=== PATIENT | male | born 1950 | race African-American/Black ===

== ENCOUNTER 2018-12-03 14:34 | Inpatient (IN) | payer SELFPAY ==
[~2018-12-03 14:34] MED LIST: Rocuronium Bromide 10 MG/ML (10ML VIAL) ONE
--- NOTE | 2018-12-03 15:20 | CT ---
CT BRAIN WITHOUT CONTRAST: HISTORY:Syncope COMPARISON:None FINDINGS: There are foci of decreased attenuation in the periventricular white matter, consistent with chronic small vessel ischemic disease. No evidence of acute infarct, hemorrhage, midline shift or abnormal extra-axial fluid collections is seen. The ventricular size is appropriate and the basilar cisterns are patent. The bony calvarium is intact. There are postop changes in the upper cervical spine The visualized paranasal sinuses and mastoid air cells are well aerated. IMPRESSION: No CT evidence of acute intracranial process.
--- NOTE | 2018-12-03 15:25 | RAD ---
RADIOGRAPH CHEST 1 VIEW: Date: 12/03/18 Time: 1500 HOURS HISTORY: 68-year-old male status post cardiopulmonary resuscitation. Unresponsive. COMPARISON: None. FINDINGS: There are bilateral small to moderate size pleural effusions, with partial silhouetting of the right hemidiaphragm and complete silhouetting of left hemidiaphragm, with adjacent air space densities in t he bilateral lower lung zones, left greater than right. The bilateral upper lung zones are clear. No pulmonary edema or pneumothorax. IMPRESSION: 1. Bilateral pleural effusions. 2. Air space densities at the bilateral lung bases, left greater than right. JN [] POS: TPC
[2018-12-03 15:42] LABS: Actual Bicarbonate (HCO3a) 34.3 mEq/L (22-28); Analyzer IN Cardio ER; Calcium, Ionized 1.17 mmol/L (1.12-1.30); Carboxyhemoglobin (COHb) 0.2 gm% (0.0-3.0); Hemoglobin (Hb) 10.6 g/dL (14.0-18.0); O2 Tension (PaO2) 133.4 mmHg (> 80.0); Potassium - ABG Lab 3.74 mmol/L (3.70-5.30)
[2018-12-03 15:51] LABS: Hemoglobin 10.9 g/dL (14.0-18.0); Mean Corpuscular HGB CONC 31.5 g/dL (32.0-36.0); Mean Corpuscular Hemoglobin 27.5 pg (27.0-31.0); Mean Corpuscular Volume 87.4 fL (78.0-98.0); Platelet Count 19 thou/uL (130-400); RBC Distribution Width 19.2 % (11.5-14.5); Red Blood Cell (RBC) Count 3.97 mill/uL (4.70-6.10); White Blood Cell (WBC) Count 1.3 thou/uL (4.8-10.8)
[2018-12-03 16:06] LABS: #Lymphocytes 0.6 thou/uL (1.20-3.40); #Monocytes 0.1 thou/uL (0.11-0.59); #Neutrophils 0.5 thou/uL (1.40-6.50); %Lymphocytes 49.7 % (21.0-51.0); %Neutrophils 39.8 % (42.0-75.0); ALT (SGPT) 20 U/L (8-55); AST (SGOT) 30 U/L (5-34); Albumin 3.7 g/dL (3.4-4.8); Alkaline Phosphatase 85 U/L (40-150); Anion Gap 18 mmol/L (10-20); Anisocytosis SLIGHT = 6-15 cells (100X) (0-5/hpf); BUN (Urea Nitrogen) 19 mg/dL (8.4-25.7); Band 1 % (5-11); Bilirubin, Total 0.4 mg/dL (0.2-1.2); Calc. Creatinine Clearance 0 mL/min (70-130); Calcium 9.3 mg/dL (7.8-10.44); Carbon Dioxide 28 mmol/L (23-31); Chloride 96 mmol/L (98-107); Estimated GFR-MDRD 67; Globulin 4.3 g/dL (2.4-3.5); Glucose 195 mg/dL (80-115); Lipase 18 U/L (8-78); Lymphocytes 50 % (21-51); MDiff Complete? YES; Monocytes 4 % (0-10); Neutrophil 44 % (42-75); Platelet Morphology Comment Appears Decreased; Polychromasia SLIGHT = 2-3 cells (100X) (0-2/hpf); Potassium 4.1 mmol/L (3.5-5.1); Reactive Lymphocytes 1 % (0-10); Reflex for Review?? YES; Sodium 138 mmol/L (136-145)
[2018-12-03] MEDS ORDERED: Piperacillin/Tazobactam 4.5 GM VIAL ONE (16:16)
[2018-12-03 16:24] LABS: ALV-art Gradient -48.385 (0-20); CO2 Tension 91.7 mmHg (35.0-45.0); Puncture Site L.R.; pH, Arterial 7.19 (7.35-7.45)
[2018-12-03 19:56] LABS: Troponin I 0.073 ng/mL (< 0.028)
[2018-12-03] MEDS ORDERED: Ondansetron PF 4 MG/2 ML Vial IVP PRN ×2 (19:59→22:23)
[2018-12-03] MEDS ORDERED: Ondansetron ODT 4 MG TAB SL PRN (19:59)
[2018-12-03 20:33] LABS: Lactic Acid 2.2 mmol/L (0.5-2.2)
[2018-12-03 21:55] LABS: Actual Bicarbonate (HCO3a) 36.5 mEq/L (22-28); Calcium, Ionized 1.16 mmol/L (1.12-1.30); Carboxyhemoglobin (COHb) 0.3 gm% (0.0-3.0); Hemoglobin (Hb) 10.4 g/dL (14.0-18.0); O2 Tension (PaO2) 119.3 mmHg (> 80.0); Potassium - ABG Lab 4.61 mmol/L (3.70-5.30)
[2018-12-03] MEDS ORDERED: Piperacillin/Tazobactam 3.375 GM in Sodium Chloride 0.9% 100 ML IVPB SCH (22:00)
[2018-12-03 22:11] LABS: pH, Arterial 7.19 (7.35-7.45)
[2018-12-03 22:12] LABS: ALV-art Gradient 9.125 (0-20); CO2 Tension 96.9 mmHg (35.0-45.0); Puncture Site RBRACH
[2018-12-03] MEDS ORDERED: Acetaminophen 325 MG TAB PO PRN (22:23)
[2018-12-03] MEDS ORDERED: Calcium Carbonate 500 MG ChewTAB PO PRN (22:23)
[2018-12-03] MEDS ORDERED: Ondansetron ODT 4 MG TAB PO PRN (22:23)
[2018-12-03 22:24] LABS: INR-International Normal Ratio 1.1; PTT 24.2 SEC (22.9-36.1); Prothrombin Time 14.2 SEC (12.0-14.7)
[2018-12-03] MEDS ORDERED: SYSTANE 3.5 GM TUBE EA EYE PRN (22:34)
[2018-12-03 22:37] LABS: Anion Gap 18 mmol/L (10-20); BUN (Urea Nitrogen) 21 mg/dL (8.4-25.7); Calc. Creatinine Clearance 71 mL/min (70-130); Calcium 9.2 mg/dL (7.8-10.44); Carbon Dioxide 24 mmol/L (23-31); Chloride 101 mmol/L (98-107); Estimated GFR-MDRD 82; Glucose 124 mg/dL (80-115); Magnesium 1.1 mg/dL (1.6-2.6); Potassium 4.7 mmol/L (3.5-5.1); Sodium 138 mmol/L (136-145)
[2018-12-03 22:43] LABS: Troponin I 0.087 ng/mL (< 0.028)
[2018-12-03] MEDS ORDERED: Cefepime 2 GM in Sodium Chloride 0.9% 100 ML IVPB SCH (22:45)
[2018-12-03] MEDS ORDERED: Ventilator Sedation Protocol 1 EACH FS SCH (22:45)
[2018-12-03] MEDS ORDERED: Dextrose 5 % And 0.9 % NaCl 1,000 ML IV SCH (22:45)
--- NOTE | 2018-12-03 22:52 | RAD ---
Chest one view HISTORY: Central line placement. Dyspnea. Intubated. COMPARISON: Earlier exam on the same date. FINDINGS: Cardiac silhouette is magnified by projection and partially obscured by bilateral pleural f luid and bibasilar atelectasis. Mediastinum is midline. Nasogastric tube descends to the stomach. Tip of endotracheal catheter overlies the thoracic inlet. Tip of a left subclavian central venous cat heter overlies the superior vena cava. No evidence of pneumothorax. IMPRESSION: Endotracheal catheter, central venous catheter, and nasogastric tube are in good radiogra phic position. Bilateral pleural fluid and other findings are otherwise stable.
[2018-12-03] MEDS ORDERED: Lorazepam 2 MG/ML VIAL SLOW IVP PRN (22:53)
[2018-12-03] MEDS ORDERED: fentaNYL Citrate/PF 2,000 MCG in Sodium Chloride 0.9% 60 ML IV SCH (22:53)
[2018-12-03] MEDS ORDERED: Propofol 1,000 MG/100 ML VIAL IV PRN (22:53)
[2018-12-03] MEDS ORDERED: Morphine 2 MG/ML SYRINGE SLOW IVP PRN (22:53)
[2018-12-03] MEDS ORDERED: Propofol BOLUS 1,000 MG/100 ML VIAL IV PRN (22:53)
[2018-12-03] MEDS ORDERED: Fentanyl BOLUS 250 ML IVPB PRN (22:53)
[2018-12-03] MEDS ORDERED: DISCONTINUE PREVIOUS NARCOTIC PAIN MEDICATIONS AND BENZODIAZEPINES FS SCH (22:53)
[2018-12-03] MEDS ORDERED: Propofol 1,000 MG/100 ML VIAL IV ONE (22:54)
[2018-12-03] MEDS ORDERED: Magnesium Sulfate 4 GM in Sodium Chloride 0.9% 250 ML 250 ML IVPB SCH (23:00)
[2018-12-03] MEDS ORDERED: Magnesium Sulfate 2 GM in Sodium Chloride 0.9% 100 ML IVPB SCH (23:00)
[2018-12-03 23:25] LABS: Actual Bicarbonate (HCO3a) 27.3 mEq/L (22-28); Base Excess (BEa) 6.3 mEq/L (-2.0 to +3.0); CO2 Tension 27.4 mmHg (35.0-45.0); Calcium, Ionized 1.07 mmol/L (1.12-1.30); Carboxyhemoglobin (COHb) 0.7 gm% (0.0-3.0); O2 Tension (PaO2) 178.7 mmHg (> 80.0); Potassium - ABG Lab 4.33 mmol/L (3.70-5.30)
[2018-12-03] MEDS: Vancomycin HCl 1 GM in Premix Bag 1 BAG IVPB SCH (23:27)
[2018-12-03] MEDS: Dextrose 5 % And 0.9 % NaCl 1,000 ML IV SCH (23:27)
[2018-12-03 23:33] LABS: Puncture Site RRA; pH, Arterial 7.62 (7.35-7.45)
[2018-12-03] MEDS ORDERED: Nitroglycerin 0.4 MG TAB (25 Tab Bottle) PO PRN (23:48)
[2018-12-03] MEDS ORDERED: Insulin Regular 300 UNITS/3 ML VIAL SC PRN (23:54)
[2018-12-03] MEDS ORDERED: Dextrose 50% Abboject 50 ML SYRINGE SLOW IVP PRN (23:54)
[2018-12-03] MEDS ORDERED: Dextrose 5% in Water 1,000 ML IV PRN (23:54)
--- NOTE | 2018-12-04 00:29 | HP ---
PRIMARY CARE PHYSICIAN: [facility]. PRIMARY ONCOLOGIST: Dr. Zhang at [facility]. CHIEF COMPLAINT: Altered mentation with syncopal episode. HISTORY OF PRESENT ILLNESS: The patient is a 68-year-old male with peritoneal cancer with metastasis, currently followed at [facility], presented to the hospital by EMS after a syncopal episode. The event was witnessed by patient's daughter , who is a nurse. He became lightheaded when he returned to the hotel room with his family. He landed on the bed without hitting his head. His pulses were thready. He had very shallow bleeding. He received CPR for approximately 5 minutes until the EMS arrived. There was no chest pain, palpitations, or focal neurologic deficit reported prior to the above event. At this time, the patient is on BiPAP and not much information is available from the patient due to current mentation. In the emergency room, his initial vital signs showed temperature of 97.8, pulse rate of 122, blood pressure of 105/76, O2 saturation of 93% on 2 L nasal cannula. ABGs were done in the emergency room that showed pH of 7.19 with pCO2 of 91.7, PO2 of 133.4 with bicarbonate of 34.3. He was placed on noninvasive positive- pressure ventilation at 12/5 at 4:00 p.m. EKG showed sinus tachycardia with nonspecific ST-T wave changes in the lateral leads. He received Levaquin and Zosyn along with 1 L IV fluids in the emergency room. His chest x-ray showed small to moderate bilateral pleural AV effusion along with airspace densities in bilateral lung base. CT brain without contrast was negative. Blood cultures were not done in the emergency room due to poor IV access. Daughter reported that lately patient gets short of breath on mild exertion. He is unable to lie down flat. He has been sleeping in the recliner. PAST MEDICAL HISTORY: 1. Obtained from the daughter at the bedside. Peritoneal cancer (mesothelioma with metastasis). 2. Diabetes mellitus type 2. 3. Hypertension. 4. Chronic pain syndrome. PAST SURGICAL HISTORY: 1. Recent left thoracentesis for malignant pleural effusion. 2. History of paracentesis. 3. Multiple abdominal biopsies. 4. Colonoscopy. 5. EGD. 6. Neck surgery. ALLERGIES: NO KNOWN DRUG ALLERGIES. CURRENT HOME MEDICATIONS: Family to provide accurate list of medications. According to the ER list, the patient is on: 1. Oxycodone. 2. Olanzapine. 3. Potassium chloride. 4. Metformin. 5. Zofran. 6. Metoprolol tartrate. 7. Amlodipine. 8. Reglan. 9. Lasix 40 mg twice a day. 10. Folic acid. 11. Xanax. 12. Megace. SOCIAL HISTORY: The patient is a former smoker, lives at home with his family. He is full code. This was confirmed with the daughter, who is the DPOA. He is independent of activities of daily living. However, due to weakness, he started using rolling walker. FAMILY HISTORY: Negative for heart disease or malignancy per family. REVIEW OF SYSTEMS: Cannot be obtained from the patient due to current cognitive status. PHYSICAL EXAMINATION: VITAL SIGNS: As discussed above. Due to abnormal repeat ABGs, he just got intubated. GENERAL: 68-year-old male in no apparent distress on sedation protocol. HEENT: Head, atraumatic and normocephalic. Sclerae anicteric. Endotracheal tube noted. NECK: Supple. No JVD. No neck stiffness. LUNGS: Showed bibasilar rales with diminished air entry at bilateral bases. No accessory muscle use. No wheezing. HEART: S1, S2 present. Regular. No heaves or pulsation. ABDOMEN: Soft. Bowel sounds present. No guarding or rigidity. EXTREMITIES: No edema or calf tenderness. NEUROLOGY AND PSYCHIATRY: Could not be done due to current cognitive status. SKIN: Warm and dry. LYMPH NODES: No palpable lymph nodes in the neck. LABORATORY FINDINGS: Laboratory findings as discussed above. WBC 1.3 with neutrophil of 39.8%, hemoglobin 10.9, hematocrit 34.7, platelet of 19. D-dimer 8.42. ABGs as discussed above. Lactic acid 4.5. Troponin in the indeterminate range at 0.074. Magnesium 1.1. Chest x-ray, EKG and CT brain by my review as discussed above. IMPRESSION: 1. Acute hypoxic and hypercapnic respiratory failure, secondary to healthcare-associated pneumonia. 2. s/p CPR prior to ER arrival. 3. Neutropenia with anemia and thrombocytopenia, probably secondary to chemotherapy. 4. Lactic acidosis probably secondary to suspected sepsis. 5. Toxic metabolic encephalopathy secondary to #1. 6. Elevated troponin secondary to demand ischemia/type 2 myocardial infarction. 7. Peritoneal cancer (mesothelioma) with metastasis. 8. Hypomagnesemia. 9. Diabetes mellitus type 2. 10. Chronic kidney disease, stage 2. 11. Hypertension. PLAN: The patient had a repeat ABG 6 hours after BiPAP that showed pH of 7.19 with pCO2 of 96.9, PO2 of 119.3 with bicarbonate 36.5. He currently got emergently intubated. The case was discussed with sas bi developer, Dr. Last, over the phone. We will start him on vancomycin, cefepime, and Levaquin for healthcare-associated pneumonia. IV fluids. DVT prophylaxis with SCDs. A central line has been placed due to poor IV access. GI prophylaxis. Ventilation sedation protocol. We will repeat chest x-ray, ABG, and labs in a.m. We will check BMP. Due to recent shortness of breath on mild exertion, we will also get an echocardiogram. There is a concern for pulmonary embolism as well. However, he is not a candidate for anticoagulation due to thrombocytopenia. We will check bilateral lower extremity Doppler to rule out DVT. Insulin sliding scale. Platelet transfusion if repeat platelet is below 15,000. Plan of care was discussed with the daughter and her in detail. They stated understanding. Job ID: [id number] [id number]
[2018-12-04 05:37] LABS: Platelet Count 12 thou/uL (130-400); White Blood Cell (WBC) Count 0.8 thou/uL (4.8-10.8)
[2018-12-04 05:38] LABS: Hemoglobin 7.8 g/dL (14.0-18.0); Mean Corpuscular HGB CONC 32.1 g/dL (32.0-36.0); Mean Corpuscular Hemoglobin 27.6 pg (27.0-31.0); Mean Platelet Volume 17.2 fL (7.4-10.4); RBC Distribution Width 18.4 % (11.5-14.5); Red Blood Cell (RBC) Count 2.83 mill/uL (4.70-6.10)
[2018-12-04 05:47] LABS: Elliptocytes SLIGHT = 2-5 cells (100X) (0-1/hpf); Eosinophils 4 % (0-10); Hypochromia SLIGHT = 6-15 cells (100X) (0-5/hpf); Lymphocytes 76 % (21-51); MDiff Complete? YES; Monocytes 4 % (0-10); Neutrophil 16 % (42-75); Platelet Morphology Comment Appears Decreased; Target Cells SLIGHT = 2-5 cells (100X) (0-1/hpf)
[2018-12-04 06:01] LABS: ALT (SGPT) 19 U/L (8-55); AST (SGOT) 32 U/L (5-34); Albumin 2.8 g/dL (3.4-4.8); Alkaline Phosphatase 59 U/L (40-150); Anion Gap 15 mmol/L (10-20); BUN (Urea Nitrogen) 21 mg/dL (8.4-25.7); Bilirubin, Total 0.4 mg/dL (0.2-1.2); Calc. Creatinine Clearance 69 mL/min (70-130); Calcium 8.4 mg/dL (7.8-10.44); Carbon Dioxide 28 mmol/L (23-31); Chloride 100 mmol/L (98-107); Estimated GFR-MDRD 79; Globulin 3.1 g/dL (2.4-3.5); Glucose 86 mg/dL (80-115); Phosphorus 1.6 mg/dL (2.3-4.7); Potassium 3.6 mmol/L (3.5-5.1); Protein, Total 5.9 g/dL (5.8-8.1); Sodium 139 mmol/L (136-145)
[2018-12-04] MEDS: Cefepime 2 GM in Sodium Chloride 0.9% 100 ML IVPB SCH ×3 (06:22→21:39)
[2018-12-04] MEDS: Dextrose 5 % And 0.9 % NaCl 1,000 ML IV SCH ×3 (06:23→09:58)
[2018-12-04 07:07] VITALS: BP 109/59
[2018-12-04 07:15] LABS: Actual Bicarbonate (HCO3a) 27.7 mEq/L (22-28); Base Excess (BEa) 6.1 mEq/L (-2.0 to +3.0); CO2 Tension 28.5 mmHg (35.0-45.0); Calcium, Ionized 1.07 mmol/L (1.12-1.30); Hemoglobin (Hb) 8.1 g/dL (14.0-18.0); O2 Tension (PaO2) 127.6 mmHg (> 80.0); Potassium - ABG Lab 3.61 mmol/L (3.70-5.30)
[2018-12-04 07:20] LABS: pH, Arterial 7.61 (7.35-7.45)
[2018-12-04 07:21] LABS: ALV-art Gradient 86.325 (0-20); Puncture Site RBA
--- NOTE | 2018-12-04 08:13 | RAD ---
CHEST 1 VIEW: Date: 12/04/18 INDICATION: CCU examination, on ventilation. COMPARISON: Prior exam dated 12/03/18. FINDINGS: There is cardiomegaly, bilateral pleural effusions, and bibasilar atelectasis. Pulmonary vascular con gestion persists. Tubes and lines are unchanged. No pneumothorax is demonstrated. IMPRESSION: 1. Stable findings suggesting CHF. There is cardiomegaly, pulmonary vascular congestion, bilateral p leural effusions, and bibasilar opacities suspicious for atelectasis. There is suspected emphysematou s change involving the upper lobes. 2. Tubes and lines are unchanged. POS: BH
[2018-12-04] MEDS ORDERED: CCU Electrolyte Replacement 1 EACH FS SCH (09:00)
--- NOTE | 2018-12-04 09:53 | CON ---
DATE OF CONSULTATION: HISTORY OF PRESENT ILLNESS: A 68-year-old gentleman, who is intubated on the vent. History is obtained after spoken to the hospitalist. He apparently from the [place] area, apparently had a syncopal episode at home and called 911. Daughter was at the bedside, witnessed the events, did not fall down, did not hit his head. He has a diagnosis of mesothelioma with peritoneal metastasis, on the chemotherapy with [facility]. Apparently, he was given CPR for a brief period of time. It appears the daughter is a nurse. He then was brought to the hospital. There blood gas showed marked respiratory acidosis, placed on noninvasive ventilation and was transferred to the ICU. At about 9 or 10 o'clock, he became less responsive and lethargic, he was intubated. He is presently sedated on a Diprivan drip. PAST MEDICAL HISTORY: Diabetes, hypertension, mesothelioma with atrial metastasis. PAST SURGICAL HISTORY: Multiple paracenteses, thoracentesis, abdominal biopsy, colonoscopy, endoscopy, orthopaedic neck surgery. SOCIAL HISTORY: We are in the process of trying to contact the daughter, but apparently smokes at one time. He lives by himself. No alcohol abuse. MEDICATIONS: Home medicines include; 1. Glucophage 1000 twice a day. 2. Potassium. 3. Zyprexa 2.5. 4. Lopressor 25 b.i.d. 5. Reglan. 6. Norvasc 2.5. 7. Megace 20. 8. Folic acid. 9. Xanax. 10. Hydrocodone. 11. Lasix 40 b.i.d. 12. Oxycodone. He is now on vancomycin, Levaquin, and Maxipime was initiated. Diprivan has stopped. PHYSICAL EXAMINATION: GENERAL: He opens his eyes. VITAL SIGNS: Pulse 104, blood pressure 109/59, respiratory rate 18, pulse 80. CHEST: Decreased breath sounds bilaterally. CARDIAC: Normal S1 and S2. No gallop. ABDOMEN: Distended, hard, some ascites. LABORATORY DATA: White count is 0.8, hemoglobin and hematocrit are 7 and 24, platelet count is only 12,000. His PO2 is 127, pCO2 this morning. His renal function is normal. BNP is 1227 elevated, cortisol level is 14. X-ray shows bilateral pleural effusion. His blood gases prior to intubation showed pCO2 of 96, pH of 7.19, and PO2 of 119, and BiPAP suggesting marked respiratory acidosis probably hypoventilation. IMPRESSION: 1. Respiratory failure. 2. Bilateral pleural effusion. 3. Congestive heart failure versus metastatic disease. 4. Abdominal carcinomatosis. 5. Diabetes. 6. Chronic pain. 7. Cachexia. 8. Pancytopenia. I agree with broad-spectrum antibiotics. Once we unable to assess neurological status, talk to the family, get additional information. They want to consider transfer him back to [facility]. I will try and wean if possible. This is a 45-minute critical time. Job ID: [id number]
[2018-12-04] MEDS ORDERED: Magnesium 2 GM/50 ML 2 GM in Premix Bag 1 BAG IVPB PRN (10:12)
[2018-12-04] MEDS ORDERED: Potassium Phosphate 12 MMOL in Sodium Chloride 0.9% 250 ML 250 ML IV PRN (10:12)
[2018-12-04] MEDS ORDERED: Potassium Chloride 20 MEQ TAB PO PRN (10:12)
[2018-12-04] MEDS ORDERED: PHOS-NAK 1 PKT PACK PO PRN (10:12)
[2018-12-04] MEDS ORDERED: Potassium Phosphate 9 MMOL in Sodium Chloride 0.9% 100 ML IVPB PRN (10:12)
[2018-12-04] MEDS ORDERED: Potassium Chloride 40 MEQ in Sodium Chloride 0.9% 250 ML 250 ML IVPB PRN (10:12)
[2018-12-04] MEDS ORDERED: Potassium Phosphate 15 MMOL in Sodium Chloride 0.9% 250 ML 250 ML IV PRN (10:12)
[2018-12-04] MEDS ORDERED: Magnesium Oxide 400 MG TAB PO PRN ×2 (10:12)
[2018-12-04] MEDS ORDERED: Potassium Chloride 40 MEQ in Premix Bag 1 BAG IVPB PRN (10:12)
--- NOTE | 2018-12-04 10:50 | CON ---
DATE OF CONSULTATION: REASON FOR CONSULTATION: Pancytopenia and peritoneal mesothelioma. HISTORY OF PRESENT ILLNESS: A 68-year-old male with peritoneal mesothelioma, currently being treated at [facility] by Dr. Zhang with carboplatin and pemetrexed, presenting to the hospital after syncopal episode. The patient is currently intubated and history is provided by the medical record. The patient was lightheaded at his hotel room and passed out landing on the bed without hitting his head. His daughter witnessed the event, who is a nurse, and the patient received CPR for 5 minutes before EMS arrived. The patient was placed on BiPAP and eventually emergently intubated. Currently, the patient denies any pain as he is alert enough to shake and nod his head. The patient last received chemotherapy on November 19, 2018 and did not receive any Neulasta or Neupogen. He had a CT chest, abdomen, and pelvis on November 17, 2018 that did show stable disease. According to the medical record, the patient has had prior hospital admissions for shortness of breath and has had markedly elevated BNP over 5000 in the past. REVIEW OF SYSTEMS: Unable to be obtained due to the patient's condition. PAST MEDICAL HISTORY: Peritoneal mesothelioma, diabetes, and hypertension. PAST SURGICAL HISTORY: Paracentesis, abdominal biopsies, colonoscopy, EGD, and neck surgery. ALLERGIES: NO KNOWN DRUG ALLERGIES. CURRENT MEDICATIONS: Reviewed. SOCIAL HISTORY: Former smoker. FAMILY HISTORY: Mesothelioma in a cousin as per [facility] records. PHYSICAL EXAMINATION: VITAL SIGNS: Pulse 104, blood pressure 109/59, saturating 100% on ventilator, temperature 98.6. GENERAL APPEARANCE: The patient is lying in bed, intubated, sedated, but alert and arousable. HEENT: Endotracheal tube noted. Otherwise, atraumatic and normocephalic. NECK: Supple without lymphadenopathy. LUNGS: Clear to auscultation anteriorly. CARDIAC: S1 and S2. Regular rhythm and rate. ABDOMEN: Soft, nondistended. There is no guarding. EXTREMITIES: No edema with SCDs in place. NEUROLOGIC: Unable to be done due to the patient's status. PSYCHIATRIC: Unable to be done due to the patient's status. SKIN: Warm and dry. LABORATORY DATA: White blood cell 0.8, hemoglobin 7.8, platelets 12. Absolute neutrophil count yesterday was 585, currently 128. Sodium 139, potassium 3.6, BUN 29, creatinine 1.13, phosphorus 1.6, magnesium 1.1. BNP 1227. Troponin 0.087. Albumin 2.8. IMAGING DATA: Chest x-ray shows bilateral pleural effusions and airspace densities at the bilateral lung bases, left greater than right. ASSESSMENT AND PLAN: A 68-year-old male with peritoneal mesothelioma on carboplatin and pemetrexed, last received on November 19, 2018, presenting with syncopal episode, currently intubated with hypoxic respiratory failure and being treated for a HCAP with vancomycin, cefepime, and Levaquin. The patient has passed his timing of his simran; however, his blood count continued to trend down secondary to his chemotherapy, and currently his ANC is 128, platelets 12, hemoglobin 7.8. We will recommend starting Neupogen 480 mcg subcu daily and continue until his ANC is at least 1.0. His platelets have trended down from 19 to 12 and recommend 1 unit of platelet transfusion. Hemoglobin is 7.8 and would recommend 1 unit PRBCs transfused if his hemoglobin drops to 7 or below. Continue antibiotics at this time, and the patient is currently planned for a trial of extubation today. We will follow along his hospital course with you. Job ID: [id number]
--- NOTE | 2018-12-04 11:22 | ULT ---
BILATERAL LOWER EXTREMITY VENOUS DOPPLER ULTRASOUND: Date: 12/04/18 HISTORY: Immobilization, bilateral lower extremity edema. TECHNIQUE: Stephenson scale ultrasound with color flow and spectral Doppler imaging of the deep venous systems of the lower extremities was performed bilaterally. FINDINGS: There is good flow, compression, and augmentation noted in the common femoral, femoral, deep femoral, popliteal, posterior tibial, and greater saphenous veins on either side. IMPRESSION: No evidence of deep venous thrombosis in either lower extremity. POS: JANENE
[2018-12-04] MEDS: Famotidine/PF 20 mg/2ml Vial SLOW IVP SCH ×2 (11:29→19:27)
[2018-12-04] MEDS: methylPREDNISolone Sod Succ 40 MG VIAL IVP SCH ×2 (11:29→19:27)
[2018-12-04] MEDS ORDERED: Diltiazem 125 MG in Sodium Chloride 0.9% 100 ML IVPB SCH ×2 (11:30→15:45)
[2018-12-04] MEDS: PHOS-NAK 1 PKT PACK PO PRN ×2 (11:39→17:29)
[2018-12-04] MEDS: Vancomycin HCl 1 GM in Premix Bag 1 BAG IVPB SCH ×2 (11:44→23:49)
--- NOTE | 2018-12-04 11:47 | CON ---
DATE OF CONSULTATION: 12/04/2018 INDICATION FOR CONSULTATION: A 68-year-old gentleman, who became unresponsive. CPR was initiated. We were asked to see the patient. He still remains on the ventilator, but is arousable. HISTORY OF PRESENT ILLNESS: This unfortunate gentleman 68 years old has a history of peritoneal carcinoma with metastasis to the lungs. He has been seen by [facility], apparently whether or not he had a syncopal episode yesterday whether he had sudden cardiac is unclear. He became lightheaded and then apparently fell off the bed, hit his head and then the family noticed that his pulses are very weak. Apparently, one of the family members is in the medical field, probably a nurse and CPR was initiated and then EMS has arrived. The patient had no cardiac complaints prior to the event except that he felt somewhat lightheaded. At this time, he remains on a ventilator in the intensive care unit and as noted, is arousable. He has in the past apparently complained that he was somewhat short of breath. He does have significant pancytopenia. His platelet count is 12,000. His WBC is 0.8. Also noted, his EKG shows a sinus rhythm, sinus tachycardia, but no acute EKG changes except some nonspecific T-wave inversions in the lateral leads and also some inferiorly, but no ST-segment elevations. These are some T-wave inversions, which are nonspecific. There are no family members available. We are unable to contact him by telephone thus far. PAST MEDICAL HISTORY: From the review of the records, he does have a history of hypertension and diabetes. He has chronic pain syndrome. He has peritoneal carcinoma with metastasis to the lungs and had a thoracentesis for a malignant pleural effusion. He has had multiple abdominal biopsies. He has had paracentesis. PAST SURGICAL HISTORY: He has had neck surgery. ALLERGIES: NONE. MEDICATIONS: Prior to admission included: 1. Olanzapine. 2. Oxycodone. 3. Potassium. 4. Metformin. 5. Zofran. 6. Metoprolol. 7. Amlodipine. 8. Reglan. 9. Lasix. 10. Folic acid. 11. Xanax. 12. Megace. SOCIAL HISTORY: Apparently, the patient smoked in the past. He lives with his family. FAMILY HISTORY: Noncontributory at this time. No family members available to explain any other history that might be associated with cardiac standpoint. REVIEW OF SYSTEMS: Not obtainable. PHYSICAL EXAMINATION: GENERAL: Reveals an elderly gentleman, who is arousable, heart rate is 120, blood pressure is 114/69, O2 saturation 100%, and respiratory rate 15 at this time. HEENT: Shows head to be normocephalic and atraumatic. Carotid pulses are present. I cannot hear any significant bruits at this time. CHEST: Clear anteriorly. Decreased breath sounds in the bases. CARDIOVASCULAR: Reveals a regular rate and rhythm. I did not hear any significant murmurs, heaves, thrills, bruits, or rubs. ABDOMEN: Soft. Somewhat firm actually, but I did not palpate any specific masses. EXTREMITIES: Show no clubbing or cyanosis. No edema. Decreased pulses are present. NEUROLOGIC: Difficult to determine as the patient is on the ventilator and somewhat sedated, but is arousable. SKIN: Warm and dry. DIAGNOSTIC DATA: EKG shows a sinus rhythm as noted above with some T-wave inversions, which is nonspecific. LABORATORY DATA: Shows a troponin I of 0.074, increased up to 0.087, still nonspecific, but could indicate a type 2 [id number] elevation myocardial infarction. His WBC is 0.8, hemoglobin 7.8, platelet count 12,000. Potassium 3.6, BUN 21, creatinine 1.13, blood sugar is 86. Chest x-ray shows bilateral pleural effusions. Echocardiogram has been performed, but is not yet available to be read. IMPRESSION: 1. A 68-year-old gentleman with metastatic cancer, who is a full code for the family members according to the records, who has now had either a sudden cardiac or single episode with hypotension, possibility he may be septic, but this will be evaluated by the primary care team, but his blood pressure appears to be stable, would be unlikely unclear as to why he had this event. At this time, he appears to be relatively stable as far as the cardiac status is concerned and I will await the results of the echocardiogram to make further recommendations. 2. History of diabetes. This will be dealt with by the primary care service. 3. Hypertension. He is under good control at this time. 4. Metastatic malignancies, which will also be dealt with by the Oncology Service. 5. Pancytopenia. I believe he will be transfused platelets, and then further evaluation will be based on the primary care's services evaluations and the family members when they are available. 6. Bilateral pleural effusions, in the past have been noted these are malignant effusions. Overall, prognosis in this gentleman obviously is poor. Cardiac status at this time appears to be relatively stable. Again, I will need to evaluate the echocardiogram. Cardiac enzymes are still indeterminate. Job ID: [id number]
[2018-12-04] MEDS: Insulin Regular 300 UNITS/3 ML VIAL SC PRN ×2 (12:49→18:22)
[2018-12-04 14:26] LABS: Hemoglobin 8.7 g/dL (14.0-18.0); Mean Corpuscular HGB CONC 31.1 g/dL (32.0-36.0); Mean Corpuscular Hemoglobin 27.4 pg (27.0-31.0); Mean Corpuscular Volume 87.9 fL (78.0-98.0); Mean Platelet Volume 10.1 fL (7.4-10.4); Platelet Count 67 thou/uL (130-400); RBC Distribution Width 18.8 % (11.5-14.5); Red Blood Cell (RBC) Count 3.19 mill/uL (4.70-6.10); White Blood Cell (WBC) Count 0.8 thou/uL (4.8-10.8)
[2018-12-04] MEDS ORDERED: Dextrose 5 % And 0.9 % NaCl 1,000 ML IV SCH (14:30)
[2018-12-04 14:43] LABS: Anisocytosis SLIGHT = 6-15 cells (100X) (0-5/hpf); Band 2 % (5-11); Eosinophils 1 % (0-10); Lymphocytes 33 % (21-51); MDiff Complete? YES; Monocytes 7 % (0-10); Neutrophil 54 % (42-75); Platelet Morphology Comment Appears Decreased; Polychromasia SLIGHT = 2-3 cells (100X) (0-2/hpf)
[2018-12-04 15:13] VITALS: BMI 22.7
--- NOTE | 2018-12-04 15:16 | PDOC.HOSPP ---
- Subjective Subjective: Says he is feeling ok. Denies SOB or discomfort. - Objective Vital Signs & Weight: Vital Signs (12 hours) Temp Pulse Resp BP Pulse Ox 12/04/18 13:40 118 H 20 100 12/04/18 12:53 98.8 F 20 100 12/04/18 12:00 100 12/04/18 09:55 100.0 F H 120 H 24 H 100 12/04/18 08:00 98.1 F 10 L 12/04/18 06:57 104 H 109/59 L 12/04/18 06:00 20 12/04/18 04:00 20 Weight Admit Weight 166 lb 14.239 oz Weight 167 lb 8.821 oz Most Recent Monitor Data Heart Rate from ECG 116 NIBP 117/68 NIBP BP-Mean 84 Respiration from ECG 17 SpO2 100 I&O: 12/03/18 12/04/18 12/05/18 06:59 06:59 06:59 Intake Total 1269 273.7 Output Total 410 172 Balance 859 101.7 Result Diagrams: 12/04/18 14:10 12/04/18 04:55 Additional Labs: Accuchecks 12/04/18 12/04/18 12:36 09:39 POC Glucose 187 H 131 H ROS - Review of Systems All systems: All other ROS were reviewed and found negative. - Medication Medications: Active Medications Generic Name Dose Route Start Last Admin Trade Name Freq PRN Reason Stop Dose Admin Acetaminophen 650 mg 12/03/18 22:23 12/04/18 09:48 Tylenol PO 650 mg Q4H PRN Administration Headache/Fever/Mild Pain (1-3) Albuterol/Ipratropium 3 ml 12/04/18 01:00 12/04/18 13:40 Duoneb NEB 3 ml [id number] JACKIE Administration Albuterol/Ipratropium 3 ml 12/04/18 13:00 12/04/18 14:23 Duoneb NEB Not Given [id number] JACKIE Famotidine 20 mg 12/04/18 09:00 12/04/18 11:29 Pepcid SLOW IVP 20 mg Q12HR JACKIE Administration Cefepime HCl 2 gm/ Sodium 100 mls @ 200 mls/hr 12/04/18 06:00 12/04/18 13:57 Chloride IVPB 100 mls Q8HR JACKIE Administration Vancomycin HCl 1 gm/ Device 200 mls @ 200 mls/hr 12/03/18 23:59 12/04/18 11: 44 IVPB 200 mls 1200,2359 JACKIE Administration Diltiazem HCl 125 mg/ Sodium 125 mls @ 5 mls/hr 12/04/18 11:30 12/04/18 11:44 Chloride IVPB 125 mls INF JACKIE Administration 5 MG/HR Dextrose/Sodium Chloride 1,000 mls @ 75 mls/hr 12/04/18 14:30 12/04/18 14:30 D5 0.9% Ns IV Not Given .[id number] JACKIE Insulin Human Regular 0 units 12/03/18 23:54 12/04/18 12:49 Humulin R SC 2 unit .MILD SLIDING SCALE PRN Administration Mild Correctional Scale Lorazepam 2 mg 12/03/18 22:53 12/04/18 01:14 Ativan SLOW IVP 01/02/19 22:53 2 mg Q1H PRN Administration Breakthrough agitation Magnesium Oxide 400 mg 12/04/18 10:12 12/04/18 13:01 Magnesium Oxide PO 400 mg BIDPRN PRN Administration FOR SERUM MAG 1.4 - 2.0 Methylprednisolone Sodium Succinate 40 mg 12/04/18 09:00 12/04/18 11:29 Solu-Medrol IVP 40 mg BID JACKIE Administration Miscellaneous Medication 1 pkt 12/04/18 10:12 12/04/18 11:39 Phos-Nak PO 1 pkt TIDPRN PRN Administration FOR PHOS LEVEL 1.0 - 1.8 Propofol 1,000 mg 12/03/18 22:53 12/04/18 08:43 Diprivan IV 01/02/19 22:53 1,000 mg INF PRN Administration TO ACHIEVE GOAL RASS Protocol Sodium Chloride 10 ml 12/03/18 21:00 12/04/18 08:44 Flush - Normal Saline IVF 10 ml Q12HR JACKIE Administration - Exam NAD, awake alert (A little drowsy.) Heart: RRR, no murmur, no gallops, no rubs, normal peripheral pulses Respiratory: CTAB, no wheezes, no rales, no ronchi, normal chest expansion, no tachypnea, normal percussion Gastrointestinal: soft, non-tender, non-distended, normal bowel sounds, no palpable masses, no hepatomegaly, no splenomegaly, no bruit Skin: normal turgor, no lesions, no rashes Neurological: CN's grossly intact, no focal deficits Psychiatric: normal affect, oriented to person, oriented to place Hosp A/P (1) Neutropenic fever Code(s): D70.9 - NEUTROPENIA, UNSPECIFIED; R50.81 - FEVER PRESENTING WITH CONDITIONS CLASSIFIED ELSEWHERE Status: Acute (2) Mesothelioma of abdomen Code(s): C45.7 - MESOTHELIOMA OF OTHER SITES Status: Acute (3) Acute diastolic (congestive) heart failure Code(s): I50.31 - ACUTE DIASTOLIC (CONGESTIVE) HEART FAILURE Status: Acute (4) SVT (supraventricular tachycardia) Code(s): I47.1 - SUPRAVENTRICULAR TACHYCARDIA Status: Acute (5) Syncope and collapse Code(s): R55 - SYNCOPE AND COLLAPSE Status: Acute (6) Acute respiratory failure with hypoxia Code(s): J96.01 - ACUTE RESPIRATORY FAILURE WITH HYPOXIA Status: Resolved - Plan Had an episode of collapse with thready pulse. Ultimately required intubation. Extubated now and doing better. Has pancytopenia and may be septic. Continue broad spectrum abx. Echo with normal EF and Diastolic dysfunction. Cardiology following Developed SVT. Has Cardizem gtt. UOP had dropped off a bit, but appears to be coming back. Will decrease IVF to 75 cc/hr.
[2018-12-04] MEDS: Sodium Chloride 0.9% 1,000 ML IV SCH (18:46)
[2018-12-04] MEDS: Metoprolol Tartrate 25 MG TAB PO SCH (19:27)
[2018-12-04] MEDS ORDERED: Prevnar 13-Val Conj/PF 0.5 ML SYRINGE IM ONE (21:00)
[2018-12-05] MEDS: Cefepime 2 GM in Sodium Chloride 0.9% 100 ML IVPB SCH ×3 (04:37→21:51)
[2018-12-05 04:59] LABS: Band 4 % (5-11); Hemoglobin 8.5 g/dL (14.0-18.0); Lymphocytes 12 % (21-51); MDiff Complete? YES; Mean Corpuscular HGB CONC 30.1 g/dL (32.0-36.0); Mean Corpuscular Hemoglobin 27.3 pg (27.0-31.0); Mean Corpuscular Volume 90.7 fL (78.0-98.0); Mean Platelet Volume 10.2 fL (7.4-10.4); Monocytes 10 % (0-10); Neutrophil 74 % (42-75); Platelet Count 61 thou/uL (130-400); Platelet Morphology Comment Appears Decreased; RBC Distribution Width 18.5 % (11.5-14.5); Red Blood Cell (RBC) Count 3.12 mill/uL (4.70-6.10); White Blood Cell (WBC) Count 1.6 thou/uL (4.8-10.8)
[2018-12-05 05:10] LABS: ALT (SGPT) 23 U/L (8-55); AST (SGOT) 25 U/L (5-34); Albumin 3.2 g/dL (3.4-4.8); Alkaline Phosphatase 63 U/L (40-150); Anion Gap 12 mmol/L (10-20); BUN (Urea Nitrogen) 21 mg/dL (8.4-25.7); Bilirubin, Total 0.2 mg/dL (0.2-1.2); Calc. Creatinine Clearance 66 mL/min (70-130); Calcium 8.9 mg/dL (7.8-10.44); Carbon Dioxide 29 mmol/L (23-31); Chloride 101 mmol/L (98-107); Estimated GFR-MDRD 75; Globulin 3.8 g/dL (2.4-3.5); Glucose 138 mg/dL (80-115); Magnesium 1.7 mg/dL (1.6-2.6); Potassium 4.9 mmol/L (3.5-5.1); Sodium 137 mmol/L (136-145)
[2018-12-05 05:17] LABS: Phosphorus 5.1 mg/dL (2.3-4.7)
[2018-12-05] MEDS: metFORMIN 500 MG TAB PO SCH ×2 (07:51→17:25)
[2018-12-05] MEDS: Famotidine/PF 20 mg/2ml Vial SLOW IVP SCH ×2 (08:02→20:29)
[2018-12-05] MEDS: methylPREDNISolone Sod Succ 40 MG VIAL IVP SCH (08:03)
[2018-12-05] MEDS: Metoprolol Tartrate 25 MG TAB PO SCH ×2 (08:03→20:29)
--- NOTE | 2018-12-05 09:07 | PRG ---
DATE OF SERVICE: 12/05/2018 SUBJECTIVE: This morning, awake, alert, and responsive. He was extubated yesterday. He is in no distress. OBJECTIVE: VITAL SIGNS: Saturations are 98% on room air, respirations 23, temperature 97, and blood pressure 127/71. He is in atrial fibrillation on Cardizem. CHEST: Decreased breath sounds. No wheezing. CARDIAC: Normal S1 and S2. No gallops. ABDOMEN: No masses. LABORATORY DATA: His renal function is normal. His white count is 1.6, H and H 26, and platelet count is low at 61. IMPRESSION: 1. Status post chemo, pancytopenia improving. 2. Congestive heart failure. 3. Supraventricular tachycardia. 4. Severe deconditioning. 5. History of mesothelioma with abdominal and pulmonary disease. His x-ray still shows small pleural effusion, which is probably chronic. He also has ascites. PLAN: Empiric antibiotics, supportive care, and PT. He can be probably transferred out of the ICU once he is off his Cardizem. Pulmonary will follow while in the ICU. Job ID: [id number]
[2018-12-05] MEDS: Sodium Chloride 0.9% 1,000 ML IV SCH ×2 (09:35→21:59)
--- NOTE | 2018-12-05 10:39 | RAD ---
CHEST 1 VIEW: Date: 12/05/18 INDICATION: CCU exam. COMPARISON: Prior exam dated 12/04/18. FINDINGS: There is stable cardiomegaly, pulmonary vascular congestion, and central edema pattern. There are sma ll bilateral pleural effusions. No pneumothorax is evident. Left subclavian central venous catheter i s unchanged. Patient has been extubated with removal of the gastric catheter. IMPRESSION: 1. Interval extubation and removal of gastric catheter. 2. Persistent findings of CHF and volume overload. POS: BH
[2018-12-05 11:26] LABS: Vancomycin, Trough 22.8 ug/mL
--- NOTE | 2018-12-05 12:02 | PDOC.HOSPP ---
- Subjective Subjective: Feels ok. Denies complaints. Breathing comfortably. - Objective Vital Signs & Weight: Vital Signs (12 hours) Temp Pulse Resp Pulse Ox 12/05/18 08:14 99 12/05/18 08:12 96 23 H 99 12/05/18 08:00 97.4 F L 12/05/18 07:11 100 12/05/18 04:00 97.5 F L Weight Admit Weight 166 lb 14.239 oz Weight 175 lb 7.807 oz Most Recent Monitor Data Heart Rate from ECG 86 NIBP 109/71 NIBP BP-Mean 83 Respiration from ECG 24 SpO2 94 I&O: 12/04/18 12/05/18 12/06/18 06:59 06:59 06:59 Intake Total 1269 3984.0 340 Output Total 410 216 Balance 859 3768.0 340 Result Diagrams: 12/05/18 04:40 12/05/18 03:30 Additional Labs: Accuchecks 12/04/18 12/04/18 18:22 12:36 POC Glucose 249 H 187 H ROS - Review of Systems All systems: All other ROS were reviewed and found negative. - Medication Medications: Active Medications Generic Name Dose Route Start Last Admin Trade Name Freq PRN Reason Stop Dose Admin Acetaminophen 650 mg 12/03/18 22:23 12/04/18 09:48 Tylenol PO 650 mg Q4H PRN Administration Headache/Fever/Mild Pain (1-3) Albuterol/Ipratropium 3 ml 12/04/18 01:00 12/05/18 08:12 Duoneb NEB 3 ml [id number] JACKIE Administration Albuterol/Ipratropium 3 ml 12/04/18 13:00 12/05/18 08:15 Duoneb NEB Not Given [id number] JACKIE Famotidine 20 mg 12/04/18 09:00 12/05/18 08:02 Pepcid SLOW IVP 20 mg Q12HR JACKIE Administration Cefepime HCl 2 gm/ Sodium 100 mls @ 200 mls/hr 12/04/18 06:00 12/05/18 04:37 Chloride IVPB 100 mls Q8HR JACKIE Administration Levofloxacin 750 mg/ Device 150 mls @ 100 mls/hr 12/04/18 17:00 12/04/18 17: 02 IVPB 150 mls 1700 JACKIE Administration Sodium Chloride 1,000 mls @ 75 mls/hr 12/04/18 18:45 12/05/18 09:35 Normal Saline 0.9% IV 1,000 mls .[id number] JACKIE Administration Insulin Human Regular 0 units 12/03/18 23:54 12/04/18 18:22 Humulin R SC 3 unit .MILD SLIDING SCALE PRN Administration Mild Correctional Scale Lorazepam 2 mg 12/03/18 22:53 12/04/18 01:14 Ativan SLOW IVP 01/02/19 22:53 2 mg Q1H PRN Administration Breakthrough agitation Magnesium Oxide 400 mg 12/04/18 10:12 12/04/18 13:01 Magnesium Oxide PO 400 mg BIDPRN PRN Administration FOR SERUM MAG 1.4 - 2.0 Metformin HCl 1,000 mg 12/05/18 08:00 12/05/18 07:51 Glucophage PO 1,000 mg BID-WM JACKIE Administration Metoprolol Tartrate 25 mg 12/04/18 21:00 12/05/18 08:03 Lopressor PO 25 mg BID JACKIE Administration Miscellaneous Medication 1 pkt 12/04/18 10:12 12/04/18 17:29 Phos-Nak PO 1 pkt TIDPRN PRN Administration FOR PHOS LEVEL 1.0 - 1.8 Propofol 1,000 mg 12/03/18 22:53 12/04/18 08:43 Diprivan IV 01/02/19 22:53 1,000 mg INF PRN Administration TO ACHIEVE GOAL RASS Protocol Sodium Chloride 10 ml 12/03/18 21:00 12/05/18 08:03 Flush - Normal Saline IVF 10 ml Q12HR JACKIE Administration Tbo-Filgrastim 480 mcg 12/05/18 09:00 12/05/18 10:19 Granix SC 480 mcg DAILY JACKIE Administration - Exam NAD, awake alert Neck: supple, symmetric, no JVD, no Thyromegaly, no lymphadenopathy, no carotid bruit Heart: RRR (Tachycardia), no murmur Respiratory: CTAB, no wheezes, no rales, no ronchi, normal chest expansion, no tachypnea Gastrointestinal: soft, non-tender, non-distended, normal bowel sounds, no palpable masses, no hepatomegaly, no splenomegaly, no bruit Extremities: no cyanosis, no clubbing, no edema Neurological: no focal deficits Musculoskeletal: normal tone Psychiatric: normal affect, normal behavior Hosp A/P (1) Neutropenic fever Code(s): D70.9 - NEUTROPENIA, UNSPECIFIED; R50.81 - FEVER PRESENTING WITH CONDITIONS CLASSIFIED ELSEWHERE Status: Acute (2) Mesothelioma of abdomen Code(s): C45.7 - MESOTHELIOMA OF OTHER SITES Status: Acute (3) Acute diastolic (congestive) heart failure Code(s): I50.31 - ACUTE DIASTOLIC (CONGESTIVE) HEART FAILURE Status: Acute (4) SVT (supraventricular tachycardia) Code(s): I47.1 - SUPRAVENTRICULAR TACHYCARDIA Status: Acute (5) Syncope and collapse Code(s): R55 - SYNCOPE AND COLLAPSE Status: Acute (6) Acute respiratory failure with hypoxia Code(s): J96.01 - ACUTE RESPIRATORY FAILURE WITH HYPOXIA Status: Resolved - Plan Still not entirely clear why he collapsed. Could be medication related, SVT related or sepsis from neutropenia. Empiric IV abx. Levaquin, Cefepime. Steroids. Restarted his BB and continues on Cardizem gtt. Episodes of SVT have been slower with the BB. Cardiology following. No longer neutropenic. Had neupogen yest. PT once his SVT is adequately controlled. DVT prophylaxis with SCD's. PUD prophylaxis with Pepcid.
[2018-12-05] MEDS: Vancomycin HCl 750 MG in Sodium Chloride 0.9% 250 ML 250 ML IVPB SCH (12:26)
[2018-12-05] MEDS: Insulin Regular 300 UNITS/3 ML VIAL SC PRN (13:04)
[2018-12-06] MEDS: Vancomycin HCl 750 MG in Sodium Chloride 0.9% 250 ML 250 ML IVPB SCH (00:08)
[2018-12-06 05:05] LABS: Band 8 % (5-11); Hemoglobin 7.6 g/dL (14.0-18.0); Hypochromia SLIGHT = 6-15 cells (100X) (0-5/hpf); Lymphocytes 27 % (21-51); MDiff Complete? YES; Mean Corpuscular HGB CONC 30.6 g/dL (32.0-36.0); Mean Corpuscular Hemoglobin 27.6 pg (27.0-31.0); Mean Corpuscular Volume 90.1 fL (78.0-98.0); Mean Platelet Volume 10.7 fL (7.4-10.4); Monocytes 10 % (0-10); Neutrophil 55 % (42-75); Platelet Count 60 thou/uL (130-400); Platelet Morphology Comment Appears Decreased; RBC Distribution Width 18.2 % (11.5-14.5); Red Blood Cell (RBC) Count 2.76 mill/uL (4.70-6.10); White Blood Cell (WBC) Count 2.6 thou/uL (4.8-10.8)
[2018-12-06 05:06] LABS: ALT (SGPT) 17 U/L (8-55); AST (SGOT) 17 U/L (5-34); Albumin 3.1 g/dL (3.4-4.8); Alkaline Phosphatase 60 U/L (40-150); Anion Gap 13 mmol/L (10-20); BUN (Urea Nitrogen) 25 mg/dL (8.4-25.7); Bilirubin, Total 0.2 mg/dL (0.2-1.2); Calc. Creatinine Clearance 67 mL/min (70-130); Calcium 8.9 mg/dL (7.8-10.44); Carbon Dioxide 28 mmol/L (23-31); Chloride 103 mmol/L (98-107); Estimated GFR-MDRD 72; Globulin 3.4 g/dL (2.4-3.5); Glucose 107 mg/dL (80-115); Magnesium 1.4 mg/dL (1.6-2.6); Potassium 4.9 mmol/L (3.5-5.1); Protein, Total 6.5 g/dL (5.8-8.1); Sodium 139 mmol/L (136-145)
[2018-12-06 05:09] LABS: Phosphorus 3.1 mg/dL (2.3-4.7)
[2018-12-06] MEDS: Cefepime 2 GM in Sodium Chloride 0.9% 100 ML IVPB SCH (05:43)
--- NOTE | 2018-12-06 07:47 | RAD ---
EXAM: Single view of the chest HISTORY: Pneumonia COMPARISON: 12/05/2018 FINDINGS: Single view of the chest shows an enlarged but stable cardiomediastinal silhouette. There are small bilateral pleural effusions with adjacent atelectasis. The central venous catheter is unchanged in position. The bones are unremarkable. IMPRESSION: Stable exam
[2018-12-06] MEDS ORDERED: predniSONE 20 MG TAB PO SCH (08:00)
[2018-12-06] MEDS: metFORMIN 500 MG TAB PO SCH (08:24)
[2018-12-06] MEDS: Metoprolol Tartrate 25 MG TAB PO SCH (08:24)
[2018-12-06] MEDS: Famotidine/PF 20 mg/2ml Vial SLOW IVP SCH (08:25)
--- NOTE | 2018-12-06 08:44 | PRG ---
DATE OF SERVICE: 12/06/2018 SUBJECTIVE: Marky Morales is a 68-year-old gentleman, this morning, is awake, alert, and responsive. He wants to go to [place]. He is asymptomatic. OBJECTIVE: VITAL SIGNS: His saturations are 98% on 2 L, pulse 120, temperature 98, and blood pressure 120/80. CHEST: Decreased breath sounds. No wheezing. CARDIAC: Normal S1 and S2. No gallops. ABDOMEN: No masses. LABORATORY DATA: Lytes are normal. Creatinine is improved to 1.2, GFR is 72, and glucose is better. White count 2.6, H and H are 7 and 24, and platelet count is 60. ASSESSMENT: 1. Pancytopenia secondary to chemotherapy. 2. Malignant mesothelioma. 3. Bilateral pleural effusion. 4. Ascites. PLAN: Discontinue vancomycin, switch him to oral antibiotics. He can be transferred to [place] anytime. We will follow while in the ICU. Job ID: [id number]
[2018-12-06] MEDS ORDERED: Cefdinir 300 MG CAP PO SCH (09:00)
--- NOTE | 2018-12-06 10:12 | PDOC.CTH ---
Cardiology Progress Note - Subjective The pt seen and examined. No overnight events. No cardiac complaints. - Objective Vital Signs Temp Pulse Resp Pulse Ox 12/06/18 06:27 98 12/06/18 06:23 124 H 18 99 12/06/18 05:00 98.3 F 12/06/18 00:00 98.3 F 12/05/18 23:30 98 12/05/18 23:29 98 Admit Weight 166 lb 14.239 oz Weight 178 lb 9.191 oz 12/05/18 12/06/18 12/07/18 06:59 06:59 06:59 Intake Total 3984.0 3255.5 Output Total 216 400 Balance 3768.0 2855.5 - Physical Examination General/Neuro: alert & oriented x3 Lungs: other: (diminished at bases) Heart: RRR Abdomen: soft Extremities: other: (No edema) - Telemetry Telemetry Rhythm: SR - Labs Result Diagrams: 12/06/18 04:30 12/06/18 03:30 Troponin/CKMB CK-MB (CK-2) 3.0 ng/mL (0-6.6) 12/03/18 14:49 Troponin I 0.087 ng/mL (< 0.028) H 12/03/18 22:05 - Assessment/Plan 1. S/p possible cardiac arrest , CPR initiated by family.- stable with 4LNC; 2. SVT - Off Diltiazem due to hypotension; will increase Metoprolol 25mg from BID to TID. HR stable. 3. HTN - stable 4. 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 Chronic diastolic HF - stable; No edema or ABD bloating; on bblocker; may start DALILA/ARB with stable VS. 6. DM type 2 7. Pancytopenia 8. Ascites with s/p paracentesis MAR reviewed * Echo on 12/04/2018 with EF 50-55%, grade I dd, mild LVH, mild MR, TR, and GA Pt. seen and eval. by me. I agree with the A/P by the HOME CARE PHYSICAL THERAPIST. The HR has been a little increased at times but otherwise stable. Chest clear anteriorly. RRR. Short episode of SVT. Agree with increased metoprolol to tid. The family wishes to take the pt. to [facility]. From a cardiac standpoint he is stable for transfer. gjm Review of Systems - Review of Systems Constitutional: reports: no symptoms reported EENTM: reports: no symptoms reported Respiratory: reports: no symptoms reported Cardiac (ROS): reports: no symptoms reported ABD/GI: reports: no symptoms reported : reports: no symptoms reported
[2018-12-06 10:59] VITALS: TEMP 98
[2018-12-06] MEDS: Sodium Chloride 0.9% 1,000 ML IV SCH (11:57)
[2018-12-06 13:05] LABS: Actual Bicarbonate (HCO3a) 28.2 mEq/L (22-28); Base Excess (BEa) 0.5 mEq/L (-2.0 to +3.0); Carboxyhemoglobin (COHb) 1.3 gm% (0.0-3.0); Hemoglobin (Hb) 8.4 g/dL (14.0-18.0); O2 Tension (PaO2) 350.1 mmHg (> 80.0); Potassium - ABG Lab 4.93 mmol/L (3.70-5.30); pH, Arterial 7.26 (7.35-7.45)
[2018-12-06] MEDS ORDERED: Metoprolol Tartrate 25 MG TAB PO SCH (15:00)
[2018-12-06 15:44] LABS: ALV-art Gradient -146.275 (0-20); CO2 Tension 65.1 mmHg (35.0-45.0); Puncture Site RB
== END 2018-12-06 14:53 | disposition home or self-care (01) | DRG 208 ==
LOC: ERS 14:34 → CCU 19:44
PROVIDERS: ADMIT Internal Medicine; ATTEND Internal Medicine
PROC: 0BH17EZ Insertion of Endotracheal Airway into Trachea, Via Natural or Artificial Opening (ICD-10-PCS; principal; 2018-12-03)
PROC: 5A1945Z Respiratory Ventilation, 24-96 Consecutive Hours (ICD-10-PCS; 2018-12-03)
PROC: 5A09357 Assistance with Respiratory Ventilation, Less than 24 Consecutive Hours, Continuous Positive Airway Pressure (ICD-10-PCS; 2018-12-03)
PROC: 30233R1 Transfusion of Nonautologous Platelets into Peripheral Vein, Percutaneous Approach (ICD-10-PCS; 2018-12-04)
DX: J96.01 Acute respiratory failure with hypoxia (principal); D61.810 Antineoplastic chemotherapy induced pancytopenia; J18.9 Pneumonia, unspecified organism; E87.2 Acidosis; I13.0 Hypertensive heart and chronic kidney disease with heart failure and stage 1 through stage 4 chronic kidney disease, or unspecified chronic kidney disease; C45.1 Mesothelioma of peritoneum; R64 Cachexia; I47.1 Supraventricular tachycardia; R18.0 Malignant ascites; C78.00 Secondary malignant neoplasm of unspecified lung; J91.0 Malignant pleural effusion; I50.32 Chronic diastolic (congestive) heart failure; E11.22 Type 2 diabetes mellitus with diabetic chronic kidney disease; N18.2 Chronic kidney disease, stage 2 (mild); G89.4 Chronic pain syndrome; T45.1X5A Adverse effect of antineoplastic and immunosuppressive drugs, initial encounter; E83.42 Hypomagnesemia; Y95 Nosocomial condition; R50.81 Fever presenting with conditions classified elsewhere; Z87.891 Personal history of nicotine dependence; Z79.84 Long term (current) use of oral hypoglycemic drugs; Z79.899 Other long term (current) drug therapy; Z68.24 Body mass index [BMI] 24.0-24.9, adult
CPT/HCPCS: 36415; 36416; 36430; 70450; 71045; 80053; 80202; 82533; 82553; 82805; 83605; 83690; 83735; 83880; 84100; 84484; 85007; 85025; 85027; 85060; 85379; 85610; 85730; 86850; 86900; 86901; 87070; 87205; 93005; 93010; 93306; 93970; 94002; 94003; 94640; 94660; 94760; 96365; 96366; 96367; J0692; J1447; J1815; J1956; J2060; J2543; J2704; J2920; J3370; J3475; J3490; J7050; J7512; J7620; P9035; S0028